=== PATIENT | female | born 1940 | race Caucasian/White ===

== ENCOUNTER 2022-08-27 12:45 | Observation (INO) | payer MEDICARE, SELFPAY ==
[2022-08-27] VITALS (14 sets, daily range): BP systolic 107–140; BP diastolic 65–92; PULSE 69–74; RESP 16–18; TEMP 36.6–36.7; O2SAT 93–97; BMI 28.6
--- NOTE | ~2022-08-27 | US_ITS ---
EXAMINATION: US carotid duplex BI DATE: 08/28/2022 08:58 INDICATION: Syncope. TECHNIQUE: Grayscale, color Doppler, and pulsed Doppler images of the cervical carotid arteries were obtained. The degree of vessel stenosis is placed in one of the following categories: normal, <50%, 5 0-69%, >=70% but less than near-occlusion, near-occlusion, or total occlusion. Note that percent sten osis relative to normal distal artery lumen diameter is indirectly measured from velocity measurement s as described by Noe, et al. Radiology 2003; 229:340-346. COMPARISON: None. FINDINGS: RIGHT: The right common carotid artery (CCA) peak systolic velocity (PSV) is 60 cm/s. The right internal car otid artery (ICA) PSV is 46 cm/s. The right ICA end-diastolic velocity (EDV) is 14 cm/s. The right IC A/CCA PSV ratio is 0.8. Grayscale and color Doppler images yield an estimate of <50% diameter reducti on from plaque in the ICA. There is antegrade flow in the right vertebral artery. LEFT: The left CCA PSV is 83 cm/s. The left ICA PSV is 72 cm/s. The left ICA EDV is 19 cm/s. The left ICA/C CA PSV ratio is 0.9. Grayscale and color Doppler images yield an estimate of <50% diameter reduction from plaque in the ICA. There is antegrade flow in the left vertebral artery. IMPRESSION: 1. <50% stenosis in the right internal carotid artery. 2. <50% stenosis in the left internal carotid artery. Reviewed, dictated and finalized at location A.
--- NOTE | ~2022-08-27 | XR_ITS ---
EXAMINATION: XR chest 1V portable 08/27/2022 13:35 INDICATION: Syncope. A. Fib. PROCEDURE: AP portable chest COMPARISON: No prior studies for comparison. FINDINGS: The lungs are clear. The cardiomediastinal silhouette is within normal limits. There are no pleural effusions. There is no pneumothorax suspected. Bipolar pacemaker leads in expected posit ion. IMPRESSION: 1: NO ACUTE CARDIOPULMONARY DISEASE. Reviewed, dictated and finalized at location A.
--- NOTE | ~2022-08-27 | CT_ITS ---
EXAMINATION: CT brain wo con DATE: 08/28/2022 08:15 INDICATION: Syncope. TECHNIQUE: Computed tomography (CT) of the head was performed without intravenous contrast. The mA wa s adjusted according to patient size. Iterative reconstruction technique was employed. The dose-lengt h product was 529.67 mGy-cm. COMPARISON: None FINDINGS: There are scattered areas of low attenuation in the cerebral white matter. There is no intr acranial hemorrhage, acute infarction, or abnormal intracranial mass lesion. The ventricles are adria l in size. There are likely changes of ocular lens replacement surgeries. There is mild mucosal thick ening in the paranasal sinuses. The mastoid air cells are normal. IMPRESSION: 1. Extensive nonspecific cerebral white matter disease, which likely represents chronic small vessel ischemic disease. Reviewed, dictated and finalized at location A.
--- NOTE | ~2022-08-27 | US_ITS ---
EXAMINATION:US venous doppler LE BI INDICATION:Elevated d-dimer TECHNIQUE: Multiple grayscale, color flow and Doppler images of the right and left lower extremity de ep venous systems were obtained and reviewed. COMPARISON:No prior studies for comparison. FINDINGS: The common femoral, superficial femoral and popliteal veins demonstrate normal respiratory variation, augmentation and compressibility. Color flow is also seen within the posterior tibial, pe roneal, greater saphenous and profunda veins. IMPRESSION: 1: No lower extremity deep venous thrombosis. Reviewed, dictated and finalized at location B.
--- NOTE | 2022-08-27 12:49 | ECG_ITS ---
Measurements Intervals [place] Rate: 71 P: -80 LA: 299 QRS: 75 QRSD: 108 T: 60 QT: 451 QTc: 492 Interpretive Statements ELECTRONIC ATRIAL PACEMAKER INCOMPLETE RIGHT BUNDLE BRANCH BLOCK ST-T WAVE ABNORMALITY IN ANTERIOR LEADS- CONSIDER ISCHEMIA ABNORMAL ECG NO PREVIOUS ECG AVAILABLE FOR COMPARISON Electronically Signed On 08-27-2022 13:42:28 CDT by Kenrick Yeager D.O.
[2022-08-27 13:09] LABS: Basophils Absolute Auto 0.1 K/mm3 (0.0-0.1); Basophils Percent Auto 1.1 % (0.2-1.2); Eosinophils Absolute Auto 0.1 K/mm3 (0-0.3); Eosinophils Percent Auto 2.6 % (0-4.4); Hematocrit 40.8 % (37.0-47.0); Hemoglobin 13.5 g/dL (12.0-15.0); Immature Granulocyte Absolute 0.02 K/mm3 (0.00-0.031); Immature Granulocyte Percent A 0.4 % (0-0.5); Lymphocytes Absolute Auto 0.93 K/mm3 (0.9-3.2); Mean Corpuscular HGB Conc 33.1 g/dl (32-36); Mean Corpuscular Volume 87.6 fl (80-100); Mean Platelet Volume 10.1 fl (7.4-10.4); Monocytes Absolute Auto 0.5 K/mm3 (0.1-0.6); Monocytes Percent Auto 9.9 % (2.6-8.5); Neutrophils Absolute Auto 3.8 K/mm3 (1.3-6.7); Platelet Count Result 239 k/mm3 (150-375); Red Blood Count 4.66 M/mm3 (4.2-5.4); Red Cell Distribution Width 13.2 % (11.5-14.5); White Blood Count 5.5 K/mm3 (4.5-10.0)
[2022-08-27 13:24] LABS: Alanine Aminotransferase 33 U/L (6-35); Albumin Level 3.5 g/dL (3.5-5.1); Alkaline Phosphatase 69 U/L (38-126); Anion Gap 7 mmol/L (8-16); Aspartate Amino Transferase 37 U/L (14-36); Bilirubin,Total 0.6 mg/dL (0.2-1.3); Blood Urea Nitrogen 21 mg/dL (7-17); Calcium 7.6 mg/dL (8.4-10.2); Carbon Dioxide 24 mmol/L (22-30); Chloride 105 mmol/L (98-107); Estimated CRCL calculation 38 ml/min; Estimated Glomerular Filt Rate 53; Glucose 109 mg/dL (65-110); Potassium 3.3 mmol/L (3.4-5.0); Sodium 136 mmol/L (137-145)
--- NOTE | 2022-08-27 13:33 | ED.GENADULT ---
HPI - General Adult General Chief complaint: Syncope Stated complaint: syncopy Time Seen by Provider: 08/27/22 12:52 History of Present Illness HPI narrative: 82-year-old female presenting to the emergency department for evaluation after having a a syncopal episode while at [facility] with her family. Patient states that she was sitting on a stool that was very high and her legs were hanging down. Patient states when she was sitting there she did have onset of lightheaded and dizziness. Patient then slumped over in the chair and family states that she had a prolonged syncopal episode. Family was able to get the patient lowered into a different chair but they never laid the patient down flat. When EMS arrived they did lay the patient flat and the gurney and soon after laying the patient flat she regained consciousness. When patient regained consciousness she had no postictal phase and patient was not confused. Patient remembers sitting in the chair and then the next thing she remembers was awakening on the gurney with EMS. Upon arrival to the emergency department patient denies any complaints. Patient does have a pacemaker defibrillator. Related Data Home Medications Medication Instructions Recorded Confirmed amiodarone 200 mg tablet 200 mg PO DAILY 03/29/22 04/26/22 metoprolol succinate 50 mg See Rx Instructions PO DAILY 03/29/22 04/26/22 tablet,extended release 24 hr Allergies Allergy/AdvReac Type Severity Reaction Status Date / Time Penicillins Allergy Hives / Verified 04/26/22 15:24 Red Face Sulfa (Sulfonamide AdvReac Nausea and Verified 04/26/22 15:24 Antibiotics) Vomiting Review of Systems Review of Systems: All systems reviewed & are unremarkable except as noted in HPI and below [facility] Past Medical History Medical History (Updated 08/27/22 @ 18:12 by Callum Espinoza MD) Atrial fibrillation COPD (chronic obstructive pulmonary disease) Hypertension Neuropathy Pacemaker Pre-diabetes Surgical History Surgical History (Updated 08/27/22 @ 16:47 by Gloria James NP) H/O: hysterectomy History of cataract extraction History of colon resection History of knee replacement shruthi S/P tonsillectomy and adenoidectomy Family History Family History (Updated 08/27/22 @ 16:48 by Gloria James NP) Mother Acute myocardial infarction Father Cancer Daughter Breast cancer Social History Social History (Updated 08/27/22 @ 16:50 by Gloria James NP) Social History: lives alone and . has 3 children. 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 HEAD: normocephalic, atraumatic. EYES: PERRLA/EOMI, conjunctivae clear. NOSE: Normal no drainage EARS:TMS clear with good light reflex. THROAT: Pharynx clear, no exudate. NECK: Supple. No adenopathy, no masses. RESPIRATORY: Airway patent, respirations nonlabored. Clear to auscultation bilaterally, no rales, rhonchi, wheezing. CARDIOVASCULAR: Regular rate and rhythm without murmurs rubs or gallops. ABDOMINAL: Soft, nontender, nondistended, normal bowel sounds MUSCULOSKELETAL: Moves all extremities. Strength/ROM intact, No edema, No calf tenderness. NEURO: Alert. Cranial nerves II through XII intact. Grossly intact SKIN: Warm, dry. Normal Color Course Course Emergency Course: 82-year-old female presented the emergency department for hoda
[2022-08-27 15:13] LABS: Appearance Urine Clear (Clear); Bilirubin Urine Negative (Negative); Blood Urine Negative (Negative); Color Urine Yellow (Yellow); Glucose Urine UA Negative (Negative); Ketones Urine Negative (Negative); Leukocyte Esterase Ur Negative LEU/UL (Negative); Nitrate Urine Negative (Negative); Protein Urine Negative (Negative); Specific Grav Ur 1.014 (1.001-1.035); Urobilinogen Urine 0.2 mg/dL (<2.0)
[2022-08-27 15:34] LABS: Add Urine Microscopic? NO
[2022-08-27 15:34] LABS: Influenza A QL RT-PCR Negative (Negative); Influenza B QL RT-PCR Negative (Negative); RSV RNA, RT-PCR Negative (Negative); SARS-CoV-2 RNA PCR Negative (Negative)
[2022-08-27 15:38] LABS: Magnesium 1.5 mg/dL (1.6-2.3)
[2022-08-27] MEDS: MAGNESIUM SULF 1 GM/D5W 100 ML 1 GM/100 ML BAG IVPB (16:12)
[2022-08-27] MEDS: POTASSIUM CHLORIDE 20 MEQ PACKET (FOR LIQUID) 40 MEQ PO (16:12)
--- NOTE | 2022-08-27 16:45 | PM.IMHP ---
H&P: HPI History of Present Illness Date/Time: 08/27/22 16:45 Chief Complaint: Syncope Narrative: this is an 82-year-old female patient who has a history of a pacemaker. The patient stated that she went out to eat with her family and was standing in line a long time. The patient stated that she just felt unwell after standing for long period time. She felt a little dizzy and lightheaded. The patient then sat down in a chair and slumped over. Her family could not wake her up. EMS arrived and laid the patient flat on the gurney soon after lying the patient flat she regained consciousness. Patient had no postictal phase and had no confusion. The patient remembers sitting in the chair and then the next thing she remembers is waking up on the gurney. She has no other complaints. according to the ER doctor her pacemaker had been interrogated and no problems were found. Her blood pressure is 140/70. Sodium 136 potassium 3.3. magnesium 1.5. influenza A/B RSV and COVID are all negative. Chest x-ray was read as no acute cardiopulmonary disease. Patient was replaced with magnesium and potassium. The patient is being admitted to observation status on the date of service of 08/27/2022 Review of Systems Review of Systems: All systems reviewed & are unremarkable except as noted in HPI and below Constitutional: Constitutional: Reports as per HPI and Reports no additional constitutional complaints Eyes: Eyes: Reports as per HPI and Reports no additional eye complaints ENT: Reports system reviewed and no additional complaints, except as documented and Reports Normal hearing present Cardiovascular: Cardiovascular: Reports no additional cardiovascular complaints Respiratory: Respiratory: Reports no additional respiratory complaints and Reports no additional respiratory complaints Gastrointestinal: Gastrointestinal: Reports as per HPI and Reports no additional gastrointestinal complaints Musculoskeletal: Musculoskeletal: Reports no additional musculoskeletal complaints Integumentary/Breasts: Skin/Breast: Reports system reviewed and no additional complaints, except as docu and Reports as per HPI Neurologic: Reports system reviewed and no additional complaints, except as documented, Reports as per HPI and Reports Normal hearing present Psychiatric: Psychiatric: Reports no additional psychiatric complaints and Reports as per HPI Endocrine: Endocrine: Reports no additional endocrine complaints Hematologic/Lymphatic: Hematologic/Lymphatic: Reports no additional hematologic/lymphatic complaints Allergic/Immunologic: Allergic/Immunologic: Reports no additional allergic/immunologic complaints [facility] Past Medical History Medical History (Updated 08/27/22 @ 21:37 by Gloria James NP) Atrial fibrillation COPD (chronic obstructive pulmonary disease) Depression with anxiety Hypertension Irritable Neuropathy Pacemaker Pre-diabetes Surgical History Surgical History (Updated 08/27/22 @ 21:31 by Gloria James NP) H/O: hysterectomy History of appendectomy History of cataract extraction History of colon resection History of knee replacement shruthi S/P tonsillectomy and adenoidectomy Family History Family History Mother Acute myocardial infarction Father Cancer Daughter Breast cancer Social History Social History (Updated 08/27/22 @ 21:33 by Gloria James NP) Social History: she lives alone and . she has 3 children. she is a retired business continuity analyst. code status: full code Years smoked: 20 Smoking status: Former smoker Tobacco type: cigarettes Alcohol intake: never Substance use: never Substance use type: does not use Lack of Transportation: No Lack of Food: Never True Current Housing: I Have Housing Concerned About Future Housing: No Difficulty Paying Gas/Electric Bills: No Difficulty Paying for Meds: No Currently
--- NOTE | 2022-08-27 18:22 | ADMGEN ---
This patient, Earnestine Briscoe, was admitted to 2 Medical Room 243-. Patient/family oriented to hospital policies and general routines including ID bracelet, bed and alarms, visiting hours, pain management, procedures, bathroom and other care routines, personal items, smoking policy, room service/diet, and visiting hours. Report taken from [place] in the ED Information on how to activate the Rapid Response Team has been discussed. Patient/Family are encouraged to report perceived risks to care and to ask questions if they do not understand what they are told or what they should do.
[2022-08-28] VITALS (10 sets, daily range): BP systolic 120–154; BP diastolic 68–78; PULSE 68–75; RESP 18; TEMP 36.7–36.9; O2SAT 94–98
--- NOTE | 2022-08-28 | ECHO_ITS ---
Patient Info Name: Earnestine Briscoe Age: 82 years : 1940 Gender: Female Ht: 65 in Wt: 171 lbs BSA: 1.91 m2 HR: 71 bpm BP: 135 / 68 mmHg Technical Quality: Fair Exam Date: 08/28/2022 2:36 PM Exam Location: [facility] Pulmonary Exam Room: 243 Patient Status: Outpatient Admit Date: 08/27/2022 Staff Ordering Physician: Gloria James NP Associate Attorney: Petra Wilburn RDCS Attending Provider: Noy Randhawa PA-C Referring Physician: Erika DE LA ROSA; Exam Type: CA echo doppler color flow Study Info Indications - SYNCOPE Complete two-dimensional, color flow and Doppler transthoracic echocardiogram is performed. Summary 1. Complete two-dimensional, color flow and Doppler transthoracic echocardiogram is performed. 2. Left ventricular chamber dimension is normal. 3. Left ventricular systolic function is normal, estimated at 60-65%. 4. The left ventricular diastolic function is normal. 5. E/e' 7 is not elevated. 6. Linear artifact in right ventricle suggestive of catheter(s), pacemaker lead(s), or ICD lead(s). 7. Left atrial chamber dimension is mildly enlarged. 8. Linear artifact in the right atrium suggestive of catheter(s), pacemaker lead(s), or ICD lead(s). 9. The mitral valve has mildly calcified annulus. 10. There is mild mitral valve regurgitation. 11. There is mild to moderate tricuspid valve regurgitation. 12. No pulmonary hypertension, estimated pulmonary arterial systolic pressure is 34 mmHg. 13. There is trace pulmonic regurgitation. Left Ventricle E/e' 7 is not elevated. Left ventricular chamber dimension is normal. Left ventricular systolic function is normal, estimated at 60-65%. The left ventricular diastolic function is normal. Right Ventricle Linear artifact in right ventricle suggestive of catheter(s), pacemaker lead(s), or ICD lead(s). Right ventricular chamber dimension is normal. Right ventricular systolic function is normal. Left Atria Left atrial chamber dimension is mildly enlarged. Right Atria Linear artifact in the right atrium suggestive of catheter(s), pacemaker lead(s), or ICD lead(s). Right atrial chamber dimension is normal. Aortic Valve The aortic valve is trileaflet. There is no aortic valve stenosis. There is no aortic valve regurgitation. Pulmonic Valve There is trace pulmonic regurgitation. Mitral Valve The mitral valve has mildly calcified annulus. There is no mitral valve stenosis. There is mild mitral valve regurgitation. Tricuspid Valve There is mild to moderate tricuspid valve regurgitation. No pulmonary hypertension, estimated pulmonary arterial systolic pressure is 34 mmHg. Pericardium/Pleural There is no pericardial effusion. Inferior Vena Cava Normal inferior vena cava with >50% collapse upon inspiration consistent with normal right atrial pressure, 5 mmHg. Aorta The aortic root size at the sinus of Valsalva is normal. Left Ventricular Outflow Tract Name Value Normal LVOT 2D LVOT Diameter 2.0 cm LVOT Doppler LVOT Peak Gradient 3 mmHg LVOT Mean Gradient 2 mmHg LVOT VTI 19 cm LVOT VTI/AV VTI Ratio 0.9
[2022-08-28 04:56] LABS: Basophils Absolute Auto 0.1 K/mm3 (0.0-0.1); Basophils Percent Auto 0.9 % (0.2-1.2); Eosinophils Absolute Auto 0.2 K/mm3 (0-0.3); Eosinophils Percent Auto 2.3 % (0-4.4); Hematocrit 44.3 % (37.0-47.0); Hemoglobin 14.6 g/dL (12.0-15.0); Immature Granulocyte Absolute 0.02 K/mm3 (0.00-0.031); Immature Granulocyte Percent A 0.3 % (0-0.5); Lymphocytes Absolute Auto 0.85 K/mm3 (0.9-3.2); Lymphocytes Percent Auto 11.1 % (18.3-44.2); Mean Corpuscular Hemoglobin 28.9 pg (26-34); Mean Corpuscular Volume 87.7 fl (80-100); Monocytes Absolute Auto 0.6 K/mm3 (0.1-0.6); Monocytes Percent Auto 7.9 % (2.6-8.5); Neutrophils Percent Auto 77.5 % (45.5-73.1); Platelet Count Result 263 k/mm3 (150-375); Red Blood Count 5.05 M/mm3 (4.2-5.4); Red Cell Distribution Width 13.4 % (11.5-14.5); White Blood Count 7.7 K/mm3 (4.5-10.0)
[2022-08-28 05:06] LABS: Lactic Acid Reflex 1.2 mmol/L (0.7-2.0)
[2022-08-28 05:11] LABS: Alanine Aminotransferase 36 U/L (6-35); Alkaline Phosphatase 87 U/L (38-126); Anion Gap 4 mmol/L (8-16); Aspartate Amino Transferase 36 U/L (14-36); Bilirubin,Total 0.8 mg/dL (0.2-1.3); Blood Urea Nitrogen 16 mg/dL (7-17); Calcium 8.8 mg/dL (8.4-10.2); Carbon Dioxide 31 mmol/L (22-30); Chloride 101 mmol/L (98-107); Estimated CRCL calculation 39 ml/min; Estimated Glomerular Filt Rate 53; Glucose 126 mg/dL (65-110); Magnesium 1.9 mg/dL (1.6-2.3); Potassium 4.5 mmol/L (3.4-5.0); Sodium 136 mmol/L (137-145)
[2022-08-28 05:30] LABS: D Dimer 0.62 ug/mL (<0.48)
[2022-08-28] MEDS: UMECLIDINIUM/VILANTEROL 62.5-25 MCG ELLIPTA 1 PUFF INHALATION (08:53)
[2022-08-28] MEDS: METOPROLOL SUCCINATE EXT REL 50 MG TABCR PO (09:11)
[2022-08-28] MEDS: MULTIVITAMINS /C LUTEIN (CENTRUM SILVER) TABLET *BKC 1 TAB PO (09:11)
[2022-08-28] MEDS: LOSARTAN POTASSIUM 100 MG TABLET PO (09:11)
[2022-08-28] MEDS: amLODIPine BESYLATE 5 MG TABLET PO (09:12)
[2022-08-28] MEDS: AMIODARONE HCL 200 MG TABLET PO (09:12)
[2022-08-28] MEDS: METOPROLOL SUCCINATE EXT REL 25 MG TABCR PO (09:12)
[2022-08-28] MEDS: APIXABAN 5 MG TABLET PO (11:09)
--- NOTE | 2022-08-28 12:17 | PCCCNOTE ---
On 08/28/22, the student, [Hiwot Conley ], provided care and completed [facility] documentation on this patient. I have reviewed the student's documentation and agree with the findings.
--- NOTE | 2022-08-28 15:19 | PM.DS ---
DS: Admitting Diagnosis Discharge Date 08/28/2022 Admitting Diagnosis Syncope DS: Discharge Diagnosis Discharge Diagnosis (1) Syncope: Qualifiers: Syncope type: unspecified Qualified Code(s): R55 - Syncope and collapse Code(s): R55 - Syncope and collapse Status: Acute Assessment and Plan: Patient had episode of syncope while waiting in a restaurant. Stated that the restroom with hot and carotid when she had been standing for quite some time waiting for table when she began to feel lightheaded and next thing she knew she was on the ground. Sounds to be vasovagal in etiology. Head CT with no acute findings. Carotid Doppler with less than 50% stenosis of the bilateral internal carotid arteries. No signs/symptoms of infection. Echocardiogram completed during admission, results pending at time of discharge. Patient was mildly orthostatic, see below. Patient had no focal neurologic deficits. She was rehydrated with IV fluids euvolemic on my initial exam. TSH within normal limits. Patient returned to baseline and no need further evaluation (2) Orthostatic hypotension: Code(s): I95.1 - Orthostatic hypotension Status: Acute Assessment and Plan: Patient noted to be mildly orthostatic with 26 point decline in systolic BP from sitting to standing position. Patient asymptomatic with positional changes. Continue Dwayne hose. Home antihypertensives continued as patient did not have any episodes of hypotension. Instructed to monitor blood pressures at home and record for PCP. Fall precautions implemented. (3) Elevated d-dimer: Code(s): R79.89 - Other specified abnormal findings of blood chemistry Status: Acute Assessment and Plan: D-dimer noted to be mildly elevated on presentation and 0.62. Venous Doppler negative for DVT. Wells score for PE 0 and patient was asymptomatic. (4) Atrial fibrillation: Code(s): I48.91 - Unspecified atrial fibrillation Status: Acute Assessment and Plan: Rate controlled during admission. Continue home metoprolol, amiodarone, amlodipine. (5) Hypertension: Code(s): I10 - Essential (primary) hypertension Status: Acute Assessment and Plan: Blood pressures were reasonably controlled. Patient was noted to be orthostatic as above. No adjustments made to home antihypertensive regimen given appropriate BP control. (6) Hypomagnesemia: Code(s): E83.42 - Hypomagnesemia Status: Acute Assessment and Plan: Magnesium was supplemented and levels normalized (7) Hypokalemia: Code(s): E87.6 - Hypokalemia Status: Acute Assessment and Plan: Levels normalized with supplementation DS: Summary Hospital Course Hospital Course: Date of admission: 08/27/2022 Date of discharge: 08/28/2022 Earnestine Briscoe is an 82-year-old female with a history of COPD, atrial fibrillation on chronic anticoagulation, prediabetes, hypertension who presented to the emergency department on 08/27/2022 after suffering a syncopal episode. On presentation to the ED, her vital signs were stable, she was afebrile, potassium 3.3, additional laboratory workup unremarkable, UA without concerns for infection, COVID influenza negative, CXR with no acute findings. Patient was admitted to the hospitalist service for further evaluation management. Please see above for further details. At the time of my evaluation, the patient was back to her baseline state of health. Workup was completed as described above. Patient found to be mildly orthostatic and will monitor BP at home and continue with [place]. Given her overall improvement, she was determined to no longer require inpatient care and she felt comfortable with plans for discharge home. Discussed with the patient worrisome signs and symptoms for which to return and she was educated on her medications. She was discharged in hemodynamically stabl
== END 2022-08-28 16:22 | disposition home or self-care (01) ==
LOC: ANHED 15:49 → ANH2MED 18:43
PROVIDERS: Nurse Practitioner; Admitting Provider Student in an Organized Health Care Education/Training Program; Emergency Provider Emergency Medicine; PCP Family Medicine; Visit Provider Physician Assistant
DX: R55 Syncope and collapse (principal); R79.89 Other specified abnormal findings of blood chemistry; I48.91 Unspecified atrial fibrillation; E83.42 Hypomagnesemia; E87.6 Hypokalemia; Z95.0 Presence of cardiac pacemaker; Z20.822 Contact with and (suspected) exposure to COVID-19; J44.9 Chronic obstructive pulmonary disease, unspecified; R94.31 Abnormal electrocardiogram [ECG] [EKG]; I10 Essential (primary) hypertension; I08.3 Combined rheumatic disorders of mitral, aortic and tricuspid valves; R90.82 White matter disease, unspecified; I45.10 Unspecified right bundle-branch block; G62.9 Polyneuropathy, unspecified; R73.03 Prediabetes; Z87.891 Personal history of nicotine dependence; Z79.899 Other long term (current) drug therapy
CPT/HCPCS: 36415; 70450; 71045; 80053; 81003; 83605; 83735; 84443; 85025; 85380; 87637; 93005; 93306; 93880; 93970; 94640; 96365; 99285; A9270; G0378; J3475